=== PATIENT | male | born 1965 ===

== ENCOUNTER 2018-03-25 16:42 | Outpatient (REF) | payer OTHER, SELFPAY ==
[2018-03-25 21:27] LABS: Abs Immature Grans 0.01 k/cumm (0.0-0.09); Absolute Basophil Count 0.04 k/cumm (0.0-0.2); Absolute Eosinophil Count 0.14 k/cumm (0.0-0.7); Absolute Lymphocyte Count 1.85 k/cumm (1.2-3.4); Absolute Monocyte Count 0.81 k/cumm (0.11-0.7); Absolute Neutrophil Count 3.54 k/cumm (1.2-6.7); Basophils % 0.6; Eosinophils % 2.2; HCT 42.8 % (40.0-50.0); HGB 14.5 g/dL (13.5-17.5); Immature Grans % 0.2; Mean Corp. HGB Concentration 33.9 g/dL (32.0-36.0); Mean Corpuscular Hemoglobin 29.4 pg (27.0-33.0); Mean Corpuscular Volume 86.8 fL (80-95); Mean Platelet Volume 11.1 fL (8.0-11.0); Monocytes % 12.7; Neutrophils % 55.3; Platelet Count 267 x1000/uL (130-400); RBC 4.93 m/cumm (4.50-6.00); RBC Distribution Width 13.6 % (11.8-14.1); White Blood Cell Count 6.39 k/cumm (4.4-10.8)
[2018-03-25 21:53] LABS: ALT 95 U/L (12-78); AST 32 U/L (15-37); Albumin 3.9 g/dL (3.4-5.0); Alkaline Phosphatase 113 U/L (46-116); Anion Gap 10.8 mmol/L (3-11); BUN 19 mg/dL (7-18); Bilirubin, Total 0.2 mg/dL (0.2-1.0); CO2 25.2 mmol/L (21.0-32.0); CREATININE 1.15 mg/dL (0.70-1.30); Calcium 9.2 mg/dL (8.5-10.1); Chloride 106 mmol/L (98-107); Glucose 90 mg/dL (70-100); Magnesium 2.1 mg/dL (1.8-2.4); Potassium 4.6 mmol/L (3.5-5.1); Sodium 142 mmol/L (136-145); Total Protein 7.2 g/dL (6.4-8.2)
[2018-03-25 22:22] LABS: ESR 5 MM/HR (1-20)
== END 2018-03-25 17:02 ==
LOC: NCHCN 16:42
PROVIDERS: PCP Family Medicine; Visit Provider Family Medicine
DX: M62.838 Other muscle spasm (principal)
CPT/HCPCS: 80053; 85652; 83735; 85025

== ENCOUNTER 2018-06-25 11:50 | Outpatient (REF) | payer OTHER, SELFPAY ==
[2018-06-25 22:13] LABS: ALT 67 U/L (12-78); AST 27 U/L (15-37); Albumin 3.8 g/dL (3.4-5.0); Alkaline Phosphatase 115 U/L (46-116); Bilirubin, Direct 0.12 mg/dL (0.00-0.20); Bilirubin, Total 0.4 mg/dL (0.2-1.0); Total Protein 7.2 g/dL (6.4-8.2)
== END 2018-06-25 12:10 ==
LOC: NCHCN 11:50
PROVIDERS: PCP Family Medicine; Visit Provider Family Medicine
DX: R79.89 Other specified abnormal findings of blood chemistry (principal)
CPT/HCPCS: 80076